=== PATIENT | female | born 1930 | race African-American/Black ===

== ENCOUNTER 2016-12-04 05:31 | Observation (INO) | payer MEDICARE ==
[~2016-12-04] VITALS: Ht 177.8 cm; Wt 90.7 kg
[2016-12-04] MEDS ORDERED: SODIUM CHLORIDE 0.9% 1,000 ML IV ONE (06:10)
[2016-12-04 06:38] LABS: BASOPHILS % 1.2 % (0.0-2.0); EOSINOPHILS % 7.4 % (0.0-5.0); HEMATOCRIT. 40.6 % (36.0-48.0); HEMOGLOBIN. 13.7 g/dL (12.0-16.0); LYMPHOCYTES % 49.3 % (20.0-50.0); MEAN CORPUSCULAR HEMOGLOBIN 31.6 pg (28.0-32.0); MEAN CORPUSCULAR VOLUME 93.5 fL (81.0-99.0); MEAN PLATELET VOLUME 6.7 fl (7.4-10.4); MONOCYTES % 13.4 % (2.0-8.0); NEUTROPHILS % 28.7 % (40.0-76.0); PLATELET 174 x1000/uL (130-400); RED BLOOD CELL COUNT 4.34 mill/uL (4.2-5.4); RED CELL DISTRIBUTION WIDTH 14.8 % (11.6-14.6)
[2016-12-04 06:53] LABS: AMMONIA < 10 uMol/L (<32)
[2016-12-04 06:58] LABS: CARBON DIOXIDE 27 mEq/L (21-32); CHLORIDE 104 mEq/L (98-107); INR 2.7; PROTHROMBIN TIME 28.7 sec; TROPONIN I < 0.02 ng/mL (0.00-0.04)
[2016-12-04 07:32] LABS: CLARITY URINE CLEAR (CLEAR); COLOR URINE DARK YELLOW (YELLOW); GLUCOSE URINE NEGATIVE (NEGATIVE); KETONES URINE TRACE (NEGATIVE); LEUKOCYTE ESTERASE URINE NEGATIVE (NEGATIVE); NITRITE URINE NEGATIVE (NEGATIVE); OCCULT BLOOD URINE NEGATIVE (NEGATIVE); PH URINE 5.5 (4.5-8.0); PROTEIN URINE NEGATIVE (NEGATIVE); SPECIFIC GRAVITY URINE 1.029 (1.005-1.030)
[2016-12-04 07:49] LABS: *AMPHETAMINES SCREEN URINE NEGATIVE (NEGATIVE); *BARBITURATES SCREEN URINE NEGATIVE (NEGATIVE); *BENZODIAZEPINES SCREEN URINE NEGATIVE (NEGATIVE); *COCAINE SCREEN URINE NEGATIVE (NEGATIVE); CANNABINOID URINE SCREEN NEGATIVE (NEGATIVE); METHADONE URINE SCREEN NEGATIVE (NEGATIVE); OPIATES URINE SCREEN NEGATIVE (NEGATIVE); PHENCYCLIDINE URINE SCREEN NEGATIVE (NEGATIVE)
[2016-12-04] MEDS ORDERED: ONDANSETRON HCL 4MG/2ML VIAL IV PRN (09:30)
[2016-12-04] MEDS ORDERED: ACETAMINOPHEN 325MG TABLET PO PRN (09:30)
[2016-12-04] MEDS ORDERED: HYDROCODONE/ACETAMINOPHEN 5/325MG TABLET PO PRN (09:30)
[2016-12-04] MEDS ORDERED: CLONIDINE 0.1MG TABLET PO PRN (09:30)
[2016-12-04] MEDS ORDERED: ENOXAPARIN 40MG/0.4ML SYR SUBCUT SCH (09:30)
[2016-12-04 13:07] VITALS: BP 125/71
[2016-12-04] MEDS ORDERED: POTA10CA42 PO (14:18)
[2016-12-04] MEDS ORDERED: DONE5TAB33 PO (14:18)
[2016-12-04] MEDS ORDERED: CEPH500C2 PO (14:18)
[2016-12-04] MEDS ORDERED: PRAV20TA57 PO (14:18)
[2016-12-04] MEDS ORDERED: WARF2TAB55 PO (14:18)
[2016-12-04] MEDS ORDERED: AMLO10TA80 PO (14:18)
[2016-12-04] MEDS ORDERED: FURO20TA4 PO (14:18)
[2016-12-04] MEDS ORDERED: HALOPERIDOL 1MG TABLET PO PRN (15:30)
[2016-12-04 16:00] VITALS: BP 132/76
[2016-12-04] MEDS ORDERED: WARFARIN SODIUM 3MG TABLET PO NR (18:00)
[2016-12-04] MEDS ORDERED: HALOPERIDOL LACTATE 5MG/ML VIAL IM NR (18:49)
[2016-12-04 20:00] VITALS: BP 139/84
[2016-12-05] VITALS: BP 118/81
[2016-12-05 04:00] VITALS: BP 120/84
[2016-12-05 06:37] LABS: INR 3.5; PROTHROMBIN TIME 36.6 sec
[2016-12-05 06:43] LABS: BASOPHILS % 0.6 % (0.0-2.0); HEMATOCRIT. 41.1 % (36.0-48.0); HEMOGLOBIN. 13.9 g/dL (12.0-16.0); LYMPHOCYTES % 38.2 % (20.0-50.0); MEAN CORPUSCULAR HEMOGLOBIN 31.9 pg (28.0-32.0); MEAN CORPUSCULAR VOLUME 94.1 fL (81.0-99.0); MEAN PLATELET VOLUME 7.1 fl (7.4-10.4); MONOCYTES % 13.4 % (2.0-8.0); NEUTROPHILS % 43.8 % (40.0-76.0); PLATELET 175 x1000/uL (130-400); RED BLOOD CELL COUNT 4.37 mill/uL (4.2-5.4); RED CELL DISTRIBUTION WIDTH 15.1 % (11.6-14.6)
[2016-12-05 07:18] LABS: CARBON DIOXIDE 26 mEq/L (21-32); CHLORIDE 104 mEq/L (98-107); T4 FREE 1.32 ng/dL (0.76-1.46)
[2016-12-05 08:00] VITALS: BP 144/87
[2016-12-05] MEDS ORDERED: ASPIRIN 81MG EC TABLET PO SCH (09:00)
[2016-12-05 12:00] VITALS: BP 145/89
[2016-12-05] MEDS ORDERED: POTASSIUM CHLORIDE 20MEQ TABLET SR PO NR ×2 (13:00→16:30)
[2016-12-05 16:00] VITALS: BP 135/85
[2016-12-05 16:22] VITALS: BP 135/85
== END 2016-12-05 18:00 | disposition home or self-care (01) ==
LOC: ER 05:38 → EDBD 05:38 → INTOOBSV 08:42 → 5WST 08:42 → ENRESERV 11:11 → 5WST 12:26
PROVIDERS: ADMIT Internal Medicine; ATTEND Internal Medicine
DX: R41.82 Altered mental status, unspecified (principal); I10 Essential (primary) hypertension; D68.9 Coagulation defect, unspecified; E78.5 Hyperlipidemia, unspecified
CPT/HCPCS: 36415; 70450; 70551; 71010; 80053; 80305; 80307; 80329; 81003; 82140; 82962; 83605; 83690; 83880; 84439; 84443; 84484; 85025; 85610; 87040; 87086; 92610; 93005; 93306; 93880; 93970; 96360; 96361; 96372; 97162; 97166; 99285; G0378; J1630; J7030